=== PATIENT | male | born 1940 | race African-American/Black ===

== ENCOUNTER 2017-04-10 09:15 | Inpatient (IN) | payer MEDICARE, MEDICAID ==
[~2017-04-10] VITALS: Ht 172.7 cm; Wt 52.7 kg
[2017-04-10] VITALS (9 sets, daily range): BP systolic 118–147; BP diastolic 74–98
[~2017-04-10 09:15] MED LIST: ACET-2178 PO; ASPI-1159 PO; ATOR10TA69 PO; DIVA-18 PO; DOCU-138 PO; HALO5TAB PO; MULT-1146 PO; TAMS0.4C31 PO
[2017-04-10] MEDS ORDERED: ALBUTEROL (0.083%) 2.5MG/3ML NEB HHN STA (10:08)
[2017-04-10] MEDS ORDERED: IPRATROPIUM BROMIDE (0.02%) 0.5MG/2.5ML NEB HHN STA (10:08)
[2017-04-10] MEDS ORDERED: SODIUM CHLORIDE 0.9% 1000ML BAG (SEPSIS BOLUS) IV ONE (10:15)
[2017-04-10] MEDS ORDERED: LEVOFLOXACIN 500MG PREMIX 100 ML IV ONE (10:15)
[2017-04-10 11:00] LABS: HEMATOCRIT. 34.2 % (42.0-52.0); HEMOGLOBIN. 11.2 g/dL (14.0-18.0); MEAN CORPUSCULAR HEMOGLOBIN 29.2 pg (28.0-32.0); MEAN CORPUSCULAR VOLUME 89.3 fL (80.0-94.0); MEAN PLATELET VOLUME 9.2 fl (7.4-10.4); PLATELET 127 x1000/uL (130-400); RED BLOOD CELL COUNT 3.83 mill/uL (4.7-6.1); RED CELL DISTRIBUTION WIDTH 13.4 % (11.6-14.6)
[2017-04-10] MEDS ORDERED: LIDOCAINE HCL 1%/EPI 1:200,000 30 ML VIAL MC ONE (11:00)
[2017-04-10] MEDS ORDERED: ETOMIDATE 2MG/ML 10ML VIAL IV ONE ×2 (11:00→11:03)
[2017-04-10 11:07] LABS: CHLORIDE 103 mEq/L (98-107); INR 1.5; PROTHROMBIN TIME 15.4 sec
[2017-04-10 11:14] LABS: CARBON DIOXIDE 29 mEq/L (21-32)
[2017-04-10 11:19] LABS: CREATINE KINASE 666 IU/L (39-308); TROPONIN I < 0.02 ng/mL (0.00-0.04)
[2017-04-10 11:22] LABS: CREATINE KINASE MB FRACTION 16.7 ng/mL (0.5-3.6)
[2017-04-10 11:24] LABS: VALPROIC ACID < 3.0 ug/mL (50-100)
[2017-04-10 11:38] LABS: PLATELET ESTIMATE SLIGHTLY DECREASED
[2017-04-10] MEDS ORDERED: DONE5TAB33 PO (12:09)
[2017-04-10] MEDS ORDERED: CARBIDOPA/LEVODOPA (12:09)
[2017-04-10] MEDS ORDERED: MIRT15TA6 PO (12:09)
[2017-04-10] MEDS ORDERED: CHOL100026 GT (12:09)
[2017-04-10] MEDS ORDERED: DIPHENHYDRAMINE 50MG/ML VIAL IV PRN (15:45)
[2017-04-10] MEDS ORDERED: ACETAMINOPHEN 650MG/20.3ML UDC GT PRN (15:45)
[2017-04-10] MEDS ORDERED: ONDANSETRON HCL 4MG/2ML VIAL IV PRN (15:45)
[2017-04-10] MEDS ORDERED: GUAIFENESIN 200MG/10ML SUGAR FREE UDC PO PRN (15:45)
[2017-04-10 17:29] LABS: BG CARBOXYHEMOGLOBIN 0.3 % (0.5-1.5); BG DEOXYHEMOGLOBIN 1.6 % (0.0-5.0); BG HCO3 ACT 23.6 mmol/L (22.0-26.0); BG METHEMOGLOBIN 0.3 % (0.0-1.5); BG OXYGEN SATURATION 98.4 % (92.0-98.5); BG OXYHEMOGLOBIN 97.8 % (94.0-97.0); BG PCO2 30.4 mmHg (35.0-45.0); BG PH 7.507 (7.350-7.450); BG PO2 127.4 mmHg (75.0-100.0); BG SAMPLE SITE RIGHT BRACHIAL; BG TOTAL HEMOGLOBIN 10.8 g/dL (12.0-18.0); BG VENT MODE NASAL CANNULA
[2017-04-10] MEDS ORDERED: IPRATROPIUM/ALBUTEROL 0.5-3(2.5)MG/3ML NEB HHN PRN (17:30)
[2017-04-10] MEDS: OMEPRAZOLE 20MG CAPSULE EXTENDED RELEASE PO SCH (17:58)
[2017-04-10] MEDS: MIRTAZAPINE 15MG TABLET PO SCH (20:47)
[2017-04-10 20:55] LABS: TROPONIN I < 0.02 ng/mL (0.00-0.04)
[2017-04-10] MEDS: CARBIDOPA/LEVODOPA 25/100MG TABLET PO SCH (20:58)
[2017-04-10] MEDS: IPRATROPIUM/ALBUTEROL 0.5-3(2.5)MG/3ML NEB HHN SCH (21:31)
[2017-04-10] MEDS: TRAMADOL HCL/ACETAMINOPHEN 37.5/325MG TABLET PO PRN (22:38)
[2017-04-11] VITALS (14 sets, daily range): BP systolic 91–129; BP diastolic 21–75
[2017-04-11] MEDS: CARBIDOPA/LEVODOPA 25/100MG TABLET PO SCH ×3 (06:00→21:51)
[2017-04-11] MEDS: OMEPRAZOLE 20MG CAPSULE EXTENDED RELEASE PO SCH (06:21)
[2017-04-11 07:25] LABS: HEMATOCRIT. 30.6 % (42.0-52.0); HEMOGLOBIN. 10.3 g/dL (14.0-18.0); MEAN CORPUSCULAR HEMOGLOBIN 29.6 pg (28.0-32.0); MEAN CORPUSCULAR VOLUME 87.9 fL (80.0-94.0); MEAN PLATELET VOLUME 9.6 fl (7.4-10.4); PLATELET 117 x1000/uL (130-400); RED BLOOD CELL COUNT 3.48 mill/uL (4.7-6.1); RED CELL DISTRIBUTION WIDTH 13.4 % (11.6-14.6)
[2017-04-11] MEDS: IPRATROPIUM/ALBUTEROL 0.5-3(2.5)MG/3ML NEB HHN SCH ×4 (08:00→21:02)
[2017-04-11 08:05] LABS: CREATINE KINASE MB FRACTION 5.8 ng/mL (0.5-3.6); PHOSPHORUS 2.6 mg/dL (2.5-4.9); T4 FREE 1.15 ng/dL (0.76-1.46)
[2017-04-11] MEDS: DONEPEZIL HCL 5MG TABLET PO SCH (09:06)
[2017-04-11] MEDS: CHOLECALCIFEROL (D3) 1000 UNIT TABLET PO SCH (09:06)
[2017-04-11] MEDS: TAMSULOSIN HCL 0.4MG SR CAPSULE PO SCH (09:07)
[2017-04-11 09:34] LABS: BG BASE EXCESS 2.3 mmol/L (-2.0-2.0); BG CARBOXYHEMOGLOBIN 0.3 % (0.5-1.5); BG DEOXYHEMOGLOBIN 5.2 % (0.0-5.0); BG FRACTION INSPIRED OXYGEN 21; BG HCO3 ACT 26.2 mmol/L (22.0-26.0); BG METHEMOGLOBIN 0.3 % (0.0-1.5); BG OXYGEN SATURATION 94.8 % (92.0-98.5); BG OXYHEMOGLOBIN 94.2 % (94.0-97.0); BG PCO2 37.8 mmHg (35.0-45.0); BG PH 7.458 (7.350-7.450); BG PO2 73.3 mmHg (75.0-100.0); BG SAMPLE SITE RIGHT BRACHIAL; BG TOTAL HEMOGLOBIN 11.1 g/dL (12.0-18.0); BG VENT MODE ROOM AIR
[2017-04-11 09:40] LABS: CLARITY URINE CLOUDY (CLEAR); COLOR URINE DARK YELLOW (YELLOW); GLUCOSE URINE NEGATIVE (NEGATIVE); KETONES URINE NEGATIVE (NEGATIVE); LEUKOCYTE ESTERASE URINE NEGATIVE (NEGATIVE); NITRITE URINE NEGATIVE (NEGATIVE); OCCULT BLOOD URINE 2+ (NEGATIVE); PROTEIN URINE 1+ (NEGATIVE); SPECIFIC GRAVITY URINE 1.023 (1.005-1.030); UROBILINOGEN URINE 0.2 E.U./dL (0.2-1.0)
[2017-04-11 11:53] LABS: PLATELET ESTIMATE DECREASED
[2017-04-11] MEDS: MIRTAZAPINE 15MG TABLET PO SCH (21:51)
[2017-04-11] MEDS: TRAMADOL HCL/ACETAMINOPHEN 37.5/325MG TABLET PO PRN (22:02)
[2017-04-12] VITALS (12 sets, daily range): BP systolic 97–144; BP diastolic 53–75
[2017-04-12] MEDS: OMEPRAZOLE 20MG CAPSULE EXTENDED RELEASE PO SCH (06:32)
[2017-04-12] MEDS: CARBIDOPA/LEVODOPA 25/100MG TABLET PO SCH ×3 (06:33→21:15)
[2017-04-12] MEDS: DONEPEZIL HCL 5MG TABLET PO SCH (08:01)
[2017-04-12] MEDS: CHOLECALCIFEROL (D3) 1000 UNIT TABLET PO SCH (08:01)
[2017-04-12] MEDS: TAMSULOSIN HCL 0.4MG SR CAPSULE PO SCH (08:02)
[2017-04-12] MEDS: IPRATROPIUM/ALBUTEROL 0.5-3(2.5)MG/3ML NEB HHN SCH ×2 (14:04→20:58)
[2017-04-12] MEDS: ASCORBIC ACID 250 MG TABLET PO SCH (21:15)
[2017-04-12] MEDS: MIRTAZAPINE 15MG TABLET PO SCH (21:15)
[2017-04-13] VITALS (12 sets, daily range): BP systolic 97–140; BP diastolic 37–73
[2017-04-13] MEDS: OMEPRAZOLE 20MG CAPSULE EXTENDED RELEASE PO SCH (06:03)
[2017-04-13] MEDS: CARBIDOPA/LEVODOPA 25/100MG TABLET PO SCH ×3 (06:04→21:15)
[2017-04-13 06:48] LABS: BASOPHILS % 0.2 % (0.0-2.0); EOSINOPHILS % 0.3 % (0.0-5.0); HEMATOCRIT. 30.9 % (42.0-52.0); HEMOGLOBIN. 10.3 g/dL (14.0-18.0); LYMPHOCYTES % 13.7 % (20.0-50.0); MEAN CORPUSCULAR HEMOGLOBIN 29.4 pg (28.0-32.0); MEAN CORPUSCULAR VOLUME 88.3 fL (80.0-94.0); MEAN PLATELET VOLUME 8.9 fl (7.4-10.4); MONOCYTES % 7.2 % (2.0-8.0); NEUTROPHILS % 78.6 % (40.0-76.0); PLATELET 130 x1000/uL (130-400); RED CELL DISTRIBUTION WIDTH 13.8 % (11.6-14.6)
[2017-04-13 07:40] LABS: CHLORIDE 108 mEq/L (98-107)
[2017-04-13 07:53] LABS: CARBON DIOXIDE 28 mEq/L (21-32)
[2017-04-13] MEDS: IPRATROPIUM/ALBUTEROL 0.5-3(2.5)MG/3ML NEB HHN SCH ×4 (08:18→20:35)
[2017-04-13] MEDS: MULTIVITAMINS,THER W-MINERALS TABLET PO SCH (09:00)
[2017-04-13] MEDS: CHOLECALCIFEROL (D3) 1000 UNIT TABLET PO SCH (09:00)
[2017-04-13] MEDS: ASCORBIC ACID 250 MG TABLET PO SCH ×2 (09:01→21:14)
[2017-04-13] MEDS: DONEPEZIL HCL 5MG TABLET PO SCH (09:01)
[2017-04-13] MEDS: TAMSULOSIN HCL 0.4MG SR CAPSULE PO SCH (09:01)
[2017-04-13] MEDS: ZINC SULFATE 220 MG ( 50 ) CAPSULE PO SCH (09:01)
[2017-04-13] MEDS: MIRTAZAPINE 15MG TABLET PO SCH (21:14)
[2017-04-14] VITALS (12 sets, daily range): BP systolic 106–133; BP diastolic 50–88
[2017-04-14] MEDS: CARBIDOPA/LEVODOPA 25/100MG TABLET PO SCH ×3 (06:07→21:16)
[2017-04-14] MEDS: FAMOTIDINE 20MG TABLET PO SCH ×2 (06:07→12:45)
[2017-04-14] MEDS: IPRATROPIUM/ALBUTEROL 0.5-3(2.5)MG/3ML NEB HHN SCH ×4 (07:59→20:49)
[2017-04-14] MEDS: MULTIVITAMINS,THER W-MINERALS TABLET PO SCH (12:45)
[2017-04-14] MEDS: ASCORBIC ACID 250 MG TABLET PO SCH ×2 (12:45→21:16)
[2017-04-14] MEDS: CHOLECALCIFEROL (D3) 1000 UNIT TABLET PO SCH (12:45)
[2017-04-14] MEDS: ZINC SULFATE 220 MG ( 50 ) CAPSULE PO SCH (12:46)
[2017-04-14] MEDS: DONEPEZIL HCL 5MG TABLET PO SCH (12:46)
[2017-04-14] MEDS: TAMSULOSIN HCL 0.4MG SR CAPSULE PO SCH (12:46)
[2017-04-14] MEDS: TRAMADOL HCL/ACETAMINOPHEN 37.5/325MG TABLET PO PRN (12:47)
[2017-04-14] MEDS: MIRTAZAPINE 15MG TABLET PO SCH (21:16)
[2017-04-15] VITALS (9 sets, daily range): BP systolic 106–131; BP diastolic 62–76
[2017-04-15] MEDS ORDERED: POTASSIUM PHOS,M-BASIC-D-BASIC 30 MMOL in DEXTROSE 5% WATER 1,000 ML IV SCH (01:45)
[2017-04-15] MEDS ORDERED: MAGNESIUM 4 G PREMIX 100 ML IV SCH (02:30)
[2017-04-15] MEDS: POTASSIUM PHOS,M-BASIC-D-BASIC 30 MMOL in DEXTROSE 5% WATER 1,000 ML IV SCH ×2 (04:30→13:53)
[2017-04-15] MEDS: CARBIDOPA/LEVODOPA 25/100MG TABLET PO SCH ×2 (06:27→13:53)
[2017-04-15 07:15] LABS: BASOPHILS % 0.3 % (0.0-2.0); EOSINOPHILS % 0.6 % (0.0-5.0); HEMATOCRIT. 27.6 % (42.0-52.0); HEMOGLOBIN. 9.2 g/dL (14.0-18.0); LYMPHOCYTES % 14.5 % (20.0-50.0); MEAN CORPUSCULAR HEMOGLOBIN 29.3 pg (28.0-32.0); MEAN CORPUSCULAR VOLUME 87.9 fL (80.0-94.0); MEAN PLATELET VOLUME 8.5 fl (7.4-10.4); MONOCYTES % 4.9 % (2.0-8.0); NEUTROPHILS % 79.7 % (40.0-76.0); PLATELET 123 x1000/uL (130-400); RED BLOOD CELL COUNT 3.15 mill/uL (4.7-6.1); RED CELL DISTRIBUTION WIDTH 13.6 % (11.6-14.6)
[2017-04-15] MEDS: IPRATROPIUM/ALBUTEROL 0.5-3(2.5)MG/3ML NEB HHN SCH ×2 (08:38→12:27)
[2017-04-15] MEDS: ZINC SULFATE 220 MG ( 50 ) CAPSULE PO SCH (08:45)
[2017-04-15] MEDS: DONEPEZIL HCL 5MG TABLET PO SCH (08:45)
[2017-04-15] MEDS: ASCORBIC ACID 250 MG TABLET PO SCH (08:46)
[2017-04-15] MEDS: TAMSULOSIN HCL 0.4MG SR CAPSULE PO SCH (08:46)
[2017-04-15] MEDS: MULTIVITAMINS,THER W-MINERALS TABLET PO SCH (08:47)
[2017-04-15] MEDS: CHOLECALCIFEROL (D3) 1000 UNIT TABLET PO SCH (08:47)
== END 2017-04-15 15:30 | disposition home health service (06) | DRG 871 ==
LOC: EDBEDREQ 11:03 → EDBEDREQSVC 11:03 → EDBEDREQ 11:42 → ER 11:48 → 3WST 11:50 → ENRESERV 11:59
PROVIDERS: ADMIT Specialist; ATTEND Specialist
PROC: 0W9930Z Drainage of Right Pleural Cavity with Drainage Device, Percutaneous Approach (ICD-10-PCS; principal; 2017-04-10)
DX: A41.9 Sepsis, unspecified organism (principal); J93.0 Spontaneous tension pneumothorax; E43 Unspecified severe protein-calorie malnutrition; G93.40 Encephalopathy, unspecified; M62.82 Rhabdomyolysis; J98.11 Atelectasis; N13.8 Other obstructive and reflux uropathy; N39.0 Urinary tract infection, site not specified; T79.7XXA Traumatic subcutaneous emphysema, initial encounter; J93.83 Other pneumothorax; E55.9 Vitamin D deficiency, unspecified; N40.1 Benign prostatic hyperplasia with lower urinary tract symptoms; F20.9 Schizophrenia, unspecified; F03.90 Unspecified dementia, unspecified severity, without behavioral disturbance, psychotic disturbance, mood disturbance, and anxiety; G20 Parkinson's disease; I50.9 Heart failure, unspecified; J44.9 Chronic obstructive pulmonary disease, unspecified; N31.9 Neuromuscular dysfunction of bladder, unspecified; Z74.01 Bed confinement status; Z86.73 Personal history of transient ischemic attack (TIA), and cerebral infarction without residual deficits
CPT/HCPCS: 32551; 36415; 36600; 71010; 80053; 80061; 80076; 80165; 81001; 82040; 82375; 82550; 82553; 82805; 83036; 83540; 83550; 83605; 83690; 83735; 83880; 84100; 84153; 84439; 84443; 84481; 84484; 84550; 85025; 85610; 85651; 87040; 87086; 93005; 93970; 94640; 96365; 96366; 99152; 99291; J1956; J3475; J3490; J7030; J7070; J7611; J7620; A4315